=== PATIENT | female | born 1940 | race Caucasian/White ===

== ENCOUNTER 2023-02-28 08:18 | Day surgery (SDC) | payer MEDICARE ==
[2023-02-28] VITALS (8 sets, daily range): BP systolic 103–155; BP diastolic 56–85; PULSE 57–63; RESP 14–17; TEMP 97.5; O2SAT 94–97
[~2023-02-28] VITALS: Ht 157.5 cm; Wt 62.3 kg
[2023-02-28] MEDS ORDERED: normal saline 1000ml 1,000 ML IV PRN (08:50)
[2023-02-28] MEDS ORDERED: ceFAZolin inj. 2,000 MG in dextrose 5%-water 100 ML IV ONE (08:50)
[2023-02-28 09:25] LABS: EOSINOPHILS # (AUTO) 0.1 X10'3 (0-0.9); EOSINOPHILS % (AUTO) 1.7 % (0-6); HEMOGLOBIN 13.9 g/dl (12.0-16.0); LYMPHOCYTES # (AUTO) 1.3 X10'3 (1.1-4.8); LYMPHOCYTES % (AUTO) 26.6 % (21-51); MEAN CORPUSCULAR HEMOGLOBIN 28.8 PG (27.0-31.0); MEAN CORPUSCULAR HGB CONC 33.1 g/dL (33.0-36.5); MEAN PLATELET VOLUME 7.5 FL (7.4-10.4); MONOCYTES # (AUTO) 0.6 X10'3 (0-0.9); MONOCYTES % (AUTO) 11.6 % (2-12); NEUTROPHILS % (AUTO) 59.1 % (42-75); PLATELET COUNT 360 X10'3 (140-440); RED BLOOD COUNT 4.83 X10'6 (4.20-5.60); RED CELL DISTRIBUTION WIDTH 14.8 % (11.5-14.5)
[2023-02-28] MEDS ORDERED: midazolam 1 mg/ML 2ml injection ONE ×2 (09:26→10:47)
[2023-02-28] MEDS ORDERED: diphenhydrAMINE 50 mg/ml inj ONE (09:26)
[2023-02-28] MEDS ORDERED: fentaNYL/PF 50MCG/1 ML 2ML syringe ONE ×2 (09:26→10:47)
[2023-02-28] MEDS ORDERED: LIDOcaine 1% 30ml preserv. free vial ONE (09:30)
[2023-02-28] MEDS ORDERED: AMLO5TAB16 PO (09:35)
[2023-02-28] MEDS ORDERED: LORA2TAB96 PO (09:35)
[2023-02-28] MEDS ORDERED: iohexol 300 MG/1 ML 50ml polymer ONE (09:37)
[2023-02-28] MEDS ORDERED: Vitamin B12 SQ (09:37)
[2023-02-28 09:41] LABS: PROTHROMBIN TIME 10.4 SECONDS (9.0-12.0)
[2023-02-28] MEDS ORDERED: normal saline 1000ml 1,000 ML IV SCH (11:45)
[2023-02-28] MEDS ORDERED: morphine 2 MG/ML inj. syringe IV PRN (11:45)
== END 2023-02-28 13:45 | disposition home or self-care (01) ==
LOC: SSTAY O 08:18
PROVIDERS: ATTEND Radiology Vascular & Interventional Radiology
DX: M80.08XA Age-related osteoporosis with current pathological fracture, vertebra(e), initial encounter for fracture (principal); M54.50 Low back pain, unspecified; Z88.8 Allergy status to other drugs, medicaments and biological substances; Z88.5 Allergy status to narcotic agent; Z79.899 Other long term (current) drug therapy; Z79.01 Long term (current) use of anticoagulants
CPT/HCPCS: 22514; 36415; 85025; 85610; 99152; 99153; C1713; J1200; J2250; J3010; J3490; J7030; Q9967; A4615; A4620